=== PATIENT | female | born 1990 | race Caucasian/White ===

== ENCOUNTER 2025-09-23 19:54 | Emergency (ER) | payer OTHER, MEDICAID, SELFPAY ==
[2025-09-23] VITALS (8 sets, daily range): BP systolic 106–123; BP diastolic 66–85; PULSE 100–106; RESP 15–22; TEMP 36.4–36.8; O2SAT 94–99; BMI 29.1
--- OUTSIDE RECORDS SUMMARY | 2025-09-23 19:56 | XMS_ITS | Clinical Summary ---
Author Organization [facility] Address [facility] [place] [address] Care Team Providers Care Insurance Claims Adjuster Name Role Phone Rehana Gates MD Primary Care Provider [phone] Allergies No known active allergies Medications escitalopram (LEXAPRO) 10 MG tabletIndication s:Generalized Anxiety Disorder Take by mouth daily Active Active Problems Problem Noted Date Diagnosed Date Encounter for triage in patient 021 Indication for care in labor or delivery 021 Tonsillar and adenoid hypertrophy 04/05/2013 Social History Tobacco Use Types Packs/Day Years Used Date Smoking Tobacco: Never Smokeless Tobacco: Never Alcohol Use Standard Drinks/Week Comments Not Currently 0 (1 standard drink = 0.6 oz pur e alcohol) [place] Depression Scale Answer Date Recorded Last EPDS Total Score Not on file 02/11/2023 The thought of harming myself has occurred to me . Never 02/11/2023 Adolescent Education Answer Date Record ed Getting School Help Needed Not on file 07/22 Comments No Sex and Gender Information Value Date Recorded Sex Assigned at Not on file Legal Sex Female 1:33 PM CDT Gender Identity Not on file Sexual Orientation Not on file Last Filed Vital Signs Vital Sign Reading Time Taken Comments Blood Pressure 121/87 02/11/2023 3:54 PM CDT Pulse 89 02/11/2023 3:54 PM CDT Temperature 37.1 C (98.7 F) 02/11/2023 3:54 PM CDT Respiratory Rate 16 02/11/2023 3:54 PM CDT Oxygen Saturation 96% 02/10/2023 5:15 PM CDT Inhaled Oxygen Concentration - - Weight 77.1 kg (170 lb) 02/10/2023 7:58 AM CDT Height 157.5 cm (5' 2) 02/10/2023 7:58 AM CDT Body Mass Index 31.09 02/10/2023 7:58 AM CDT Plan of Treatment Health Maintenance Due Date Last Done Comments ADVANCE CARE PLANNING 1992 ANNUAL REVIEW OF HM ORDERS 1992 YEARLY PREVENTIVE VISIT 1995 HEPATITIS B VACCINE (1 of 3 - 19+ 3-dose series) 2011 PAP 2013 PHQ-2 (once per calendar year) 2024 COVID-19 VACCINE (1 - 2024-2 6 season) 2025 INFLUENZA VACCINE (#1) 2025 10/30/2020 DTAP/TDAP/TD VACCINE (3 - Td or Tdap) 02/13/2031 02/13/2021, 06/13/2019, 07/29/2004 ZOSTER VACCINE (1 of 2) 2042 HPV VACCINE Completed 02/02/2008, 09/08/2007, 06/14/2007 HIV SCREENING Completed 07/23/2022, 10/10/2020 HEPATITIS C SCREENING Completed 02/10/2023 MENINGITIS VACCINE Aged Out No longer eligible based on patient's age to complete this topic PNEUMOCOCCAL VACCINE: PEDIATRICS (0 to 5 YEARS) AND AT-RISK PATIENTS (6 to 49 YEARS) Aged Out No longer eligible b ased on patient's age to complete this topic Procedures Procedure Name Priority Date/Time Associated Diagnosis Comments HIV 1&2 ANTIBODY (EXTERNAL RESULT) Routine 07/23/2022 8:00 AM CDT from Last 3 Months or Most Recently Relevant to Health Maintenance Results * HIV-1 Antibody (External Result) (07/23/2022 8:00 AM CDT) HIV 1&2 Antibody (External) Negative Nonreactive EXTERNAL LAB 07/23/2022 8:00 AM CDT us Patient Reported LAB - [facility] EXTERNAL RESULT Final Result EXTERNAL LAB External Lab from Last 3 Months or Most Recently Relevant to Health Maintenance Insurance MEDICAID [facility] MEDICAID [facility] Advance Directives For more information, please contact: [phone] * Full Code (Latest Code Status on File) Date Activated Date Inactivated Comments 02/10/2023 8:21 AM 02/10/2023 5:54 PM All basic an d advanced life-sustaining interventions are performed as appropriate Question Answer Comments Code status determined by: Discussion with ajit nt/ legal decision maker Care Teams Insurance Claims Adjuster Relationship Specialty Start Date End Date Rehana Gates MD [address] [facility] [address] [place] [id number] PCP - General supervisor instrument mechanics 02/03/23
--- OUTSIDE RECORDS SUMMARY | 2025-09-23 19:57 | XMS_ITS | Clinical Summary ---
Author Organization [facility] Address [address] [place] [id number] Care Team Providers Care Shipping Checker Name Role Phone Clinic, No Pcp Or Primary Care Provider Unavaila ble Allergies No known active allergies Medications ADDERALL XR 20 mg Extended-Release capsule 12/01/2014 Active LORYNA, 28, 3-0.02 mg tablet 12/28/2014 Ac tive LORYNA, 28, 3-0.02 mg tabletIndication s:Uses control TAKE 1 TABLET BY MOUTH ONCE DAILY 84 tablet 0 01/26/2016 Active Family History Medical History Relation Name Comments GI Disease Father Arthritis Mother RA Other Mother lupus Relation Name Status Comments Father Mother Social History Tobacco Use Types Packs/Day Years Used Date Smoking Tobacco: Never Alcohol Use Standard Drinks/Week Comments Yes 0 (1 standard drink = 0.6 oz pur e alcohol) Comments No Sex and Gender Information Value Date Recorded Sex Assigned at Not on file Legal Sex Female 2:40 PM CDT Gender Identity Not on file Sexual Orientation Not on file Obstetrics History Para Term AB IAB SAB Ectopic Multiple Livin g Live Births 0 0 0 0 0 0 0 0 0 0 Last Filed Vital Signs Vital Sign Reading Time Taken Comments Blood Pressure 122/80 01/16/2015 11:12 AM CDT Pulse 80 01/16/2015 11:12 AM CDT Temperature - - Respiratory Rate - - Oxygen Saturation - - Inhaled Oxygen Concentration - - Weight 59 kg (130 lb) 01/16/2015 11:12 AM CDT Height 165.1 cm (5' 5) 01/16/2015 11:12 AM CDT Body Mass Index 21.63 01/16/2015 11:12 AM CDT Plan of Treatment Health Maintenance Due Date Last Done Comments Tetanus booster 2003 Depression screening for age 12+ 2004 HIV for age 15-65 2007 BMI (ht and wt on same day) for age 18+ 2010 Hepatitis C screening for ag e 18-79 2010 Hepatitis B series for 19+ ( 1 of 3 - 19+ 3-dose series) 2011 Pap test for age 21-65 2013 HPV series for age 9-45 (1 - 3-dose SCDM series) 2019 Influenza Vaccine (#1) 2025 RSV vaccine for adults or (1 - 1-dose 75+ series) 2067 Pneumococcal series for age 6-49 Aged Out No longer eligible based on patient's age to complete this topic Insurance Care Teams Shipping Checker Relationship Specialty Start Date End Date Clinic, No Pcp Or . PCP - General 01/15/15
--- NOTE | 2025-09-23 20:11 | ED_ITS ---
HPI - SOB/Dyspnea General Chief Complaint: Shortness of Breath/Dyspnea Stated Complaint: Shortness of breath/ 15 weeks Time Seen by Provider: 09/23/25 20:11 History of Present Illness HPI Narrative: I was called by [facility] in regards to this patient. They note kishore thurman had had a respiratory illness 3 weeks ago with continued shortness of breath over the past 2 weeks. Patient was seen yesterday and placed on albuterol after was noted she was wheezing. Last night she noted that she could not lay down because she was so short of breath. Today at urgent care her D- dimer was 454 with was normal be below 500. She also had a normal white count. Provider was concerned regarding the possibility PE but noted no lower extremities symptoms. The plan was to call the patient's OBGYN. Patient was sent here to the [facility] for further evaluation. Tigre is a very pleasant 34-year-old female currently approximately 15 weeks with an EDC of March 14 who comes to the emergency room with shortness of breath especially at night. Patient notes the URI with cough like symptoms in the absence of fever approximately 3 weeks ago. However, since that time she has had continued shortness of breath especially at night with inability to lay flat. Patient was noted to have no history of asthma but had an inhaler for difficulty breathing at times. This was an old inhaler and she stated it did not help very much. She was seen in urgent care yesterday at which time they gave her a new inhaler. She states last night was probably the worst night for shortness of breath. She has not experienced any significant production, lower extremity edema, vomiting. She denies chest pain and denies a racing heart even though her heart rate is elevated. She is not currently on any medications. Tigre has had 4 pregnancies 2 with live births. She had a miscarriage earlier this year. She is due March 14 which puts her at 15+ 5 weeks. No complications thus far. She is seen by [facility]. Patient does not know what OBs advice was when urgent care spoke with them but she was subsequently sent to the ED. denies lower extremity edema, dysuria, vaginal bleeding. Related Data Previous Rx's ?Medication ?Instructions ?Recorded albuterol sulfate 90 mcg/actuation 2 puff inhalation Q 4-6H PRN 11/23/25 aerosol inhaler shortness of breath or wheez ing #6.7 grams Allergies Allergy/AdvReac Type Severity Reaction Status Date / Time No Known Drug Allergies Allergy Verified 09/23/25 20:10 Review of Systems Status of ROS: Reports: 10 or more systems reviewed and unremarkable except as noted in History and below Const: Denies: fever, chills or fatigue Eyes: Denies: change in vision ENMT: Denies: neck pain or nasal congestion Cardio: Reports: shortness of breath with exertion; Denies: chest pain, palpitations, swelling of feet/ankles or lightheadedness Resp: Reports: shortness of breath and cough (Improving) GI: Denies: abdominal pain or nausea : Denies: painful urination Musculo: Denies: back pain, neck pain, extremity pain or extremity swelling Neuro: Denies: headache Endo: Denies: fatigue PFSH PFSH Social History Smoking Status: Never smoker Second hand tobacco smoke exposure: No How often do you have a drink containing alcohol: never AUDIT-C Alcohol total score: 0 Non-prescribed substance use: denies use Exam Narrative: Exam Narrative: Tigre galaviz is alert and oriented. Very well-spoken. No evidence of breathlessness. External ears eyes nose clear. Neck is supple. Heart with a tachycardic rate but normal rhythm. Lungs are with clears sounds except for some mild squeaking in the left upper apex. Abdomen is soft nontender. Lower extremities with no evidence of edema. Negative Homans sign. Calves are without swelling or tenderness. Const: Vital Signs, click to edit/add: Vital Signs - 24 hr 09/23/25 20:07 09/23/25 21:15 09/23/25 21:22 Temperature 97.5 F L 98.2 F Pulse Rate 103 H Pulse Rate [Pulse Oximeter] 106 H Respiratory Rate 20 19 Blood Pressure 108/77 Blood Pressure [Ri ght Upper Arm] 123/85 Pulse Oximetry 96 96 97 Oxygen Delivery Me thod Room Air 09/23/25 21:32 09/23/25 21:51 09/23/25 22:32 Temperature Pulse Rate 102 H 102 H 100 Pulse Rate [Pulse Oximeter] Respiratory Rate 15 19 15 Blood Pressure 108/75 111/83 110/81 Blood Pressure [Ri ght Upper Arm] Pulse Oximetry 99 98 98 Oxygen Delivery Me thod 09/23/25 23:01 09/23/25 23:32 09/24/25 00:22 Temperature 98.2 F 98.2 F Pulse Rate 103 H 103 H Pulse Rate [Pulse Oximeter] 101 H Respiratory Rate 22 18 18 Blood Pressure 114/74 106/66 Blood Pressure [Ri ght Upper Arm] 127/81 Pulse Oximetry 96 94 94 Oxygen Delivery Me thod Room Air 09/24/25 00:23 Temperature 98.2 F Pulse Rate Pulse Rate [Pulse Oximeter] 101 H Respiratory Rate 18 Blood Pressure Blood Pressure [Ri ght Upper Arm] 127/81 Pulse Oximetry Oxygen Delivery Me thod Documenting provider has reviewed patient's vital signs: yes Course Course ED Course: Differential diagnosis includes but is not limited to post viral bronchitis, pneumonia, post viral cardiomyopathy, PE, anxiety. At this time patient's heart rate remains elevated at 106. Blood pressure is normal and she is afebrile. Oxygen levels are currently at 96%. Does not present with socks severe air hunger. My concern however is of course PE but given , recent viral illness I do think we must also be concerned about underlying a cardiac issue. Will obtain EKG, CBC, comprehensive, proBNP, CRP. Also spoke to patient about risks benefits of PE study with a CT. Reevaluation(s) Reevaluation #1: Patient remain in the ED for extended time as reading of the CT seemed to be delayed. During that time she was persistently tachycardic at around 0103 to 105. TSH was slightly elevated at 4.9 with a normal free T4. ProBNP was reassuring and negative. Electrolytes with with within normal limits. Hemoglobin was normal at 12.6. LFTs within normal limits. CRP 0.7. Point of care troponin was negative at 0.00. Consultations Consultation #1: I had the pleasure of speaking to Dr. Misael Rodríguez dairy worker with [facility]. At this time CT of the chest is negative for PE, infiltrate, dissection. No other abnormalities noted. No significant abnormalities in the laboratory studies. Suggestion from Cardiology is echocardiogram. This could either be done by admitting patient tonight with echo tomorrow. Alternatively patient may be discharged home if she has good follow-up and is able to obtain echo as an outpatient. Patient states that she is unable to stay in the hospital tonight and elects to go home. Vital Signs Vital signs: Initial Vital Signs Temperature 97.5 F L 09/23/25 20:07 Temperature Source Temporal Artery Scan 09/23/25 20:07 Pulse Rate 106 H 09/23/25 20:07 Pulse Rhythm Regular 09/23/25 20:07 Pulse Strength 3+ Normal 09/23/25 20:07 Respiratory Rate 20 09/23/25 20:07 Blood Pressure 123/85 09/23/25 20:07 Blood Pressure Mean 97 09/23/25 20:07 Blood Pressure Position Sitting 09/23/25 20:07 Pulse Oximetry 96 09/23/25 20:07 Oxygen Delivery Method Room Air 09/23/25 20:07 Vital Signs Temperature 97.5 F L 09/23/25 20:07 Pulse Rate 106 H 09/23/25 20:07 Respiratory Rate 20 09/23/25 20:07 Blood Pressure 123/85 09/23/25 20:07 Pulse Oximetry 96 09/23/25 20:07 Oxygen Delivery Method Room Air 09/23/25 20:07 Temperature 98.2 F 09/24/25 00:23 Pulse Rate 101 H 09/24/25 00:23 Respiratory Rate 18 09/24/25 00:23 Blood Pressure 127/81 09/24/25 00:23 Pulse Oximetry 94 09/24/25 00:22 Oxygen Delivery Method Room Air 09/24/25 00:22 Medications Administered Medications: Discontinued Medications Generic Name Dose Route Start Last Admin Trade Name Freq PRN Reason Stop Dose Admin Sodium Chloride 1,000 mls @ 1,000 mls/hr 09/23/25 21:11 09/23/25 22:20 0.9 % Sodium Chloride 1000 Ml IV 09/23/25 22:10 Infused .Q1H TRACY Infusion MDM - SOB/Dyspnea MDM Narrative Medical decision making narrative: 1. Tachycardia-persistent at rest greater than 100. No evidence of ST changes. Thyroid test is with elevated TSH of a 4.98 and a normal free T4. Troponin is 0.00. No evidence of PE, infiltrate, aortic dissection noted on chest CT. Undetermined underlying cause. Could be a post viral affect on the heart although CR P and white count normal. In addition troponin is negative. At this time patient is advised to have echocardiogram. She is offered admission w ith echo tomorrow but declines stating she must go home. Recommend against working and recommend strongly following up with OBGYN or primary MD for scheduling of echocardiogram. 2. Shortness of breath-likely secondary to 1. Patient had a URI a few weeks ago but this time coughing has dissipated. Her tachycardia is not felt by her as rapid heart rate but rather shortness of breath especially at night trying to lay down and at rest. No evidence of infiltrate or pneumonia on CT. Also of note proBNP is negative and thus makes a significant cardiomyopathy less likely. 3. -15 weeks +4 days without any evidence of vaginal bleeding or abdominal pain. 4. Disposition-home at this time. Patient declines admission. She is advised to return as needed for worsening symptoms. At this time no evidence of abnormal lung tissue or PE. She may use her albuterol inhaler if she so desires. I do not want to put patient on any other medications at this point until she has echocardiogram and appropriate follow-up. She will need to return to the ER for fever, increasing shortness of breath, chest pain and as needed. Medical Records Attestation: I reviewed the patient's medical records. Lab Data Attestation: I reviewed the patient's lab results. Labs: Lab Results 09/23/25 09/23/25 Range/Units 21:10 23:40 WBC 7.61 (4.50-11.00) K/uL RBC 5.14 (4.00-5.20) m/uL Hgb 12.6 (12.0-16.0) gm/dL Hct 40.3 (33.0-51.0) % MCV 78 L (80-100) fL MCH 25 L (26-34) pg MCHC 31 L (32-36) gm/dL RDW Coeff of Feli 16.5 H (11.5-15.5) % Plt Count 311 (140-440) K/uL Neut % (Auto) 61.2 (42.0-72.0) % Lymph % (Auto) 27.5 (20-44) % [place] % (Auto) 6.3 (0.0-11.0) % Eos % (Auto) 4.2 (0.0-7.0) % Baso % (Auto) 0.5 (0.0-3.0) % Neut # (Auto) 4.66 (1.7-7.0) K/uL Lymph # (Auto) 2.09 (0.90-2.90) K/uL [place] # (Auto) 0.50 (0.00-0.90) K/UL Eos # (Auto) 0.32 (0.00-0.50) K/uL Baso # (Auto) 0.04 (0.00-0.30) K/uL Abs Immat Gran (auto) 0.02 (0.00-0.30) K/uL Imm/Tot Granulo (auto) 0.3 % Sodium 135 (135-149) mmol/L Potassium 3.6 (3.6-5.1) mmol/L Chloride 101 (96-114) mmol/L Carbon Dioxide 20 (20-32) mmol/L Anion Gap 14 (7-15) mEq/L BUN 9 (5-24) mg/dL Creatinine 0.5 (0.5-1.5) mg/dL Estimated Creat Clear 127.76 Estimated GFR 128 ml/min Glucose 96 (60-115) mg/dL Calcium 9.3 (8.4-10.6) mg/dL Total Bilirubin 0.4 (0.1-1.5) mg/dL AST 21 (12-35) U/L ALT 14 (4-35) U/L Alkaline Phosphatase 35 L (40-150) U/L C-Reactive Protein 0.7 (0.5-1.0) mg/dL NT-Pro-B Natriuret Pep < 20 (See Note) pg/mL Total Protein 8.4 H (6.0-8.3) g/dL Albumin 4.7 (3.3-5.0) g/dL TSH 4.980 H (0.270-4.200) uIU/mL Free T4 0.82 (0.70-1.85) ng/dL POC Troponin I 0.00 L (0.01-0.04) ng/ml Imaging Data CT scan - chest: Attestation: I have reviewed the pertinent imaging results. My impression: By my read no large PE or infiltrates. Radiologist's impression: Pulmonary arteries: No pulmonary embolism appreciated. Lungs: No consolidation. No effusion. No pneumothorax. Mediastinum: No acute abnormality appreciated. Lymph nodes: No gross lymphadenopathy. Upper abdomen: No acute abnormality appreciated. Soft tissues: No acute abnormality appreciated. Bones: No acute abnormality appreciated. Impression: No pulmonary embolism or other acute abnormality appreciated to account for patient`s reported symptoms. ECG Data Attestation: I personally reviewed and interpreted this ECG as follows: ECG interpretation date: 09/23/25 Interpretation: EKG by my read shows sinus tachycardia at a rate of 102. No evidence of acute ST or T-wave changes. QRS is normal as is [place] interval and QT. Discharge Plan Discharge Clinical Impression: Tachycardia, Shortness of breath Patient Disposition: Home, Self-Care Condition: Unchanged Additional Instructions: Follow-up with your bleacher pulp or primary care physician. According to Cardiology they would like you to have an echocardiogram because your heart rate is consistently above 100. Your tests have been negative for thyroid abnormality, pneumonia, pulmonary embolism, infection Return to the emergency room should you have worsening symptoms and as needed. Prescriptions: No Action albuterol sulfate 90 mcg/actuation HFA aerosol inhaler 2 puff inhalation Q4-6H PRN (Reason: shortness of breath or wheezing) Qty: 6.7 0RF Follow Up/Referrals: Provider,Not a Local [Primary Care Provider, Family Practice] Stand Alone Forms: [facility] [place] Info Instructions
--- NOTE | 2025-09-23 21:09 | CRLHL7_ITS ---
For Patients: As a result of the Century Cures Act, medical imaging exams and procedure reports are released immediately into your electronic medical record. You may view this report before your referring provider. If you have questions, please contact your health care provider. Indication: Shortness of breath, tachycardia Technique: Postcontrast CTA of the chest following 95 mL Isovue 370 IV contrast. Axial MIP images obtained. Comparison: None Findings: Pulmonary arteries: No pulmonary embolism appreciated. Lungs: No consolidation. No effusion. No pneumothorax. Mediastinum: No acute abnormality appreciated. Lymph nodes: No gross lymphadenopathy. Upper abdomen: No acute abnormality appreciated. Soft tissues: No acute abnormality appreciated. Bones: No acute abnormality appreciated. Impression: No pulmonary embolism or other acute abnormality appreciated to account for patient`s reported symptoms. Please note that all CT scans at this facility use dose modulation, iterative reconstruction, and/or weight-based dosing when appropriate to reduce radiation dose to as low as reasonably achievable. Dictated by Bon White MD @ 09/23/2025 11:28:38 PM (Electronically Signed)
[2025-09-23 21:21] LABS: Hematocrit* 40.3 % (33.0-51.0); Hemoglobin* 12.6 gm/dL (12.0-16.0); Immature Granulocytes Abs Auto 0.02 K/uL (0.00-0.30); Immature Granulocytes Pct Auto 0.3 %; Lymphocytes Absolute Auto 2.09 K/uL (0.90-2.90); Mean Corpuscular HGB Conc 31 gm/dL (32-36); Mean Corpuscular Hemoglobin 25 pg (26-34); Mean Corpuscular Volume 78 fL (80-100); RDW Coefficient of Variation % 16.5 % (11.5-15.5); Red Blood Count* 5.14 m/uL (4.00-5.20); White Blood Count* 7.61 K/uL (4.50-11.00)
[2025-09-23 21:26] LABS: Slide Review Reflex No
[2025-09-23 21:34] LABS: Albumin* 4.7 g/dL (3.3-5.0); Chloride* 101 mmol/L (96-114); Potassium* 3.6 mmol/L (3.6-5.1); Sodium* 135 mmol/L (135-149)
[2025-09-23 21:37] LABS: Alanine Aminotransferase* 14 U/L (4-35); Alkaline Phosphatase* 35 U/L (40-150); Anion Gap 14 mEq/L (7-15); Aspartate Amino Transferase* 21 U/L (12-35); Bilirubin Total* 0.4 mg/dL (0.1-1.5); Blood Urea Nitrogen* 9 mg/dL (5-24); Carbon Dioxide* 20 mmol/L (20-32); Creatinine* 0.5 mg/dL (0.5-1.5); Est. Creatinine Clearance* 127.76; Estimated Glomerular Filt Rate 128 ml/min; Total Protein* 8.4 g/dL (6.0-8.3)
[2025-09-23 21:38] LABS: Calcium* 9.3 mg/dL (8.4-10.6); Glucose* 96 mg/dL (60-115)
[2025-09-23 21:47] LABS: NT Pro B Type NatriureticPept* < 20 pg/mL (See Note)
[2025-09-23 22:11] LABS: TSH With Reflex to FT4* 4.980 uIU/mL (0.270-4.200)
[2025-09-23 22:38] LABS: Free T4 Free Thyroxine* 0.82 ng/dL (0.70-1.85)
[2025-09-23 23:49] LABS: Troponin, Point-of-Care* 0.00 ng/ml (0.01-0.04)
[2025-09-24 00:22] VITALS: BP 127/81; PULSE 101; RESP 18; TEMP 36.8; O2SAT 94
[2025-09-24 00:23] VITALS: BP 127/81; PULSE 101; RESP 18; TEMP 36.8
== END 2025-09-24 00:23 | disposition home or self-care (01) ==
PROVIDERS: Emergency Provider Family Medicine
DX: R06.02 Shortness of breath (principal); R00.0 Tachycardia, unspecified; Z3A.15 15 weeks gestation of pregnancy
CPT/HCPCS: 36415; 71275; 80053; 83880; 84439; 84443; 84484; 85025; 86140; 93005; 94761; 96360; 99285; J7030; Q9967